=== PATIENT | male | born 1955 | race Caucasian/White ===

== ENCOUNTER 2020-10-19 18:35 | Emergency (ER) | payer MEDICARE, OTHER ==
[2020-10-19] MEDS ORDERED: Piperacillin/Tazobactam 4.5 GM in Sodium Chloride 0.9% 100 ML IV ONE (19:11)
[2020-10-19] MEDS ORDERED: Lactated Ringers 1,000 ML IV SCH ×2 (19:15)
--- NOTE | 2020-10-19 20:21 | EDM.PDOC ---
ED HPI GENERAL MEDICAL PROBLEM - General Chief Complaint: Genitourinary Problem Stated Complaint: HOLE IN BLADDER Time Seen by Provider: 10/19/20 19:18 - History of Present Illness INITIAL COMMENTS - FREE TEXT/NARRATIVE: CHIEF COMPLAINT(S): Sent in from clinic for hole in bladder HISTORY OF PRESENT ILLNESS: This is a 64-year-old man with a past medical history of tobacco use disorder who comes to the emergency department with a chief complaint of "sent in from clinic for a hole and bladder." The patient states that for the last few days he has been experiencing lower quadrant abdominal pain not associated with any nausea or vomiting. He rates his pain as 4-5 out of 10. He denies any radiation of this pain. He denies any dysuria, hematuria, melena, hematochezia. He denies any pain with bowel movements. He states that he went to the clinic where they did some work-up and a CT and he was told that he had a hole in his bladder and told to come to the emergency department. He denies any other symptoms such as fever or chills, chest pain or shortness of breath. He denies any known sick contacts. REVIEW OF SYSTEMS: Constitutional: Denies fever, chills. Eyes: Denies eye pain Ears, Nose, Mouth, & Throat: Denies earache Cardiovascular: Denies chest pain Respiratory: Denies shortness of breath Gastrointestinal: Positive for lower quadrant abdominal pain. Denies Nausea, vomiting, diarrhea, hematochezia, melena Genitourinary: Denies hematuria dysuria Skin:Denies a rash MSK: Denies joint pain Neurological: Denies blurred vision Psychiatric: Denies depression PAST MEDICAL HISTORY: As per history of present illness and as reviewed below otherwise noncontributory. SURGICAL HISTORY: As per history of present illness and as reviewed below otherwise noncontributory. SOCIAL HISTORY: As per history of present illness and as reviewed below otherwise noncontributory. FAMILY HISTORY: As per history of present illness and as reviewed below otherwise noncontributory. EXAMINATION OF ORGAN SYSTEMS/BODY AREAS: Constitutional: Blood pressure was 138/85, heart rate 104, respiratory rate 20 with an oxygen saturation of 95% on room air. Temperature 36.3 General: The overall well-appearing man in no acute distress Psychiatric: Appropriate mood and affect. Eyes: No scleral icterus or conjunctival erythema ENMT: Moist mucous membranes. No pharyngeal erythema Cardiovascular: Regular, rate, and rhythm. No gallops, murmurs, or rubs. Bilateral upper extremity pulses symmetric and intact. No peripheral edema. No JVD. Respiratory: Lungs clear to auscultation bilaterally. No wheezes, rales, or rh onchi. Gastrointestinal: Soft, tenderness to palpation in the left lower quadrant, nondistended. No rebound or guarding. Normoactive bowel sounds Genitourinary: Mild suprapubic tenderness Musculoskeletal: Normal range of motion. Skin: No lesions or abrasions. Neurological: Alert, GCS 15 MEDICAL DECISION MAKING AND COURSE IN THE ED WITH INTERPRETATION/REVIEW OF DIAGNOSTIC STUDIES: This is a 64-year-old man without a past medical history of tobacco use disorder with the last colonoscopy done approximately 20 years ago who comes to the emergency department with left lower quadrant abdominal pain which was evaluated by our clinic. I did review the patient's chart with results as below. Labs reviewed reveal a leukocytosis of 12.3 without any neutrophilic predominance or left shift. CMP is unremarkable. Urine drug screen is negative. Covid is negative. Imaging reviewed which did reveal a CT abdomen pelvis with contrast which resulted in an acute diverticulitis with mid sigmoid colon with focal fluid collection consistent with intramural abscess extending exophytically external to the colonic wall measuring 2.7 cm. Given the patient is tachycardic with evidence of acute diverticulitis and abscess I did obtain blood cultures, lactic acid and provided the patient with 1 L of lactated Ringer's bolus. 30 cc/kg will not be provided as the patient systolic blood pressure is not less than 90 and we will reevaluate after lactic acid returns. We will start the patient on Zosyn. I contacted Dr. Solis who stated that at this time he is concerned about microperforation with abscess and the patient will likely need IR drainage. He states that we do not have that capability at our institution. Laboratory: Lactic acid is 0.9. Given that the lactic acid is less than 4 there will be no additional fluid boluses. We will start the patient on IV fluid maintenance. The patient has already received his antibiotics. At this time I did have a discussion with the patient that we would likely need to transfer the patient for admission and possible surgical intervention. He was amenable to this plan. I contacted [facility] in [place] and spoke with Dr. Forte who accepted the transfer. The patient will be transferred via ambulance to their emergency department. He stated that he would contact the emergency department. DISPOSITION: Patient was transferred to [facility] in [place] in stable condition CONDITION: Serious PROCEDURES: None FINAL IMPRESSION(S)/DIAGNOSES: 1. Acute diverticulitis 2. Acute mid sigmoid intramural abscess concerning for microperforation Raymundo Castro M.D. - Related Data Allergies Allergy/AdvReac Type Severity Reaction Status Date / Time No Known Allergies Allergy Verified 10/19/20 18:54 Home Meds: Home Meds . [No Known Home Meds] 10/19/20 [History] Past Medical History - Infectious Disease History Infectious Disease History: Reports: Measles, Mumps - Past Surgical History GI Surgical History: Reports: Colonoscopy Social & Family History - Family History Family Medical History: No Pertinent Family History - Tobacco Use Tobacco Use Status *Q: Current Every Day Tobacco User Years of Tobacco use: 45 Packs/Tins Daily: 1 - Caffeine Use Caffeine Use: Reports: None - Recreational Drug Use Recreational Drug Use: No ED ROS GENERAL - Review of Systems Review Of Systems: See Below ED EXAM, GI/ABD - Physical Exam Exam: See Below Course - Vital Signs Last Recorded V/S: Last Vital Signs Temp 36.8 C 10/19/20 20:17 Pulse 90 10/19/20 20:17 Resp 16 10/19/20 20:17 BP 117/77 10/19/20 20:17 Pulse Ox 95 10/19/20 20:17 - Orders/Labs/Meds Orders: Active Orders 24 hr Category Date Time Status NPO After Midnight [Nothing per Oral After Midnight Diet 10/20/20 Breakfast Active Diet] [DIET] CULTURE BLOOD [BC] Stat Lab 10/19/20 19:29 Received CULTURE BLOOD [BC] Stat Lab 10/19/20 19:35 Received Lactated Ringers [Ringers, Lactated] 1,000 ml Med 10/19/20 19:15 Active IV ASDIRECTED Lactated Ringers [Ringers, Lactated] 1,000 ml Med 10/19/20 19:15 Active IV ASDIRECTED Blood Culture x2 Reflex Set [OM.PC] Stat Oth 10/19/20 19:12 Ordered Medication Orders Lactated Ringer's (Ringers, Lactated) 1,000 mls @ 150 mls/hr IV ASDIRECTED [facility] Lactated Ringer's (Ringers, Lactated) 1,000 mls @ 999 mls/hr IV ASDIRECTED [place] Last Admin: 10/19/20 19:41 Dose: 999 mls/hr Documented by: KAYLENE Labs: Laboratory Tests 10/19/20 Range/Units 19:29 Lactate 0.9 (0.20-2.00) mmol/L Meds: Medications Generic Name Dose Route Start Last Admin Trade Name Freq PRN Reason Stop Dose Admin Lactated Ringer's 1,000 mls @ 150 mls/hr 10/19/20 19:15 Ringers, Lactated IV ASDIRECTED [facility] Lactated Ringer's 1,000 mls @ 999 mls/hr 10/19/20 19:15 10/19/20 19:41 Ringers, Lactated IV 999 mls/hr ASDIRECTED [place] Administration Discontinued Medications Generic Name Dose Route Start Last Admin Trade Name Freq PRN Reason Stop Dose Admin Piperacillin Sod/Tazobactam 100 mls @ 100 mls/hr 10/19/20 19:11 10/19/20 19:39 Sod 4.5 gm/ Sodium Chloride IV 10/19/20 20:10 100 mls/hr ONETIME ONE Administration Departure - Departure Time of Disposition: 20:21 Disposition: DC/Tfer to Acute Hospital 02 Condition: Fair Clinical Impression: Acute diverticulitis, Intestinal abscess - Discharge Information *PRESCRIPTION DRUG MONITORING PROGRAM REVIEWED*: No *COPY OF PRESCRIPTION DRUG MONITORING REPORT IN PATIENT RAJESH: No Referrals: PCP,None [Primary Care Provider] - Sepsis Event Note (ED) - Evaluation Sepsis Screening Result: No Definite Risk - Focused Exam Vital Signs: Vital Signs Temp Pulse Resp BP Pulse Ox 10/19/20 20:17 36.8 C 90 16 117/77 95 10/19/20 18:54 36.3 C 104 H 20 138/85 95 - My Orders Last 24 Hours: My Active Orders 10/19/20 19:12 Blood Culture x2 Reflex Set [OM.PC] Stat 10/19/20 19:15 Lactated Ringers [Ringers, Lactated] 1,000 ml IV ASDIRECTED Lactated Ringers [Ringers, Lactated] 1,000 ml IV ASDIRECTED 10/19/20 19:29 CULTURE BLOOD [BC] Stat 10/19/20 19:35 CULTURE BLOOD [BC] Stat 10/20/20 Breakfast NPO After Midnight [Nothing per Oral After Midnight Diet] [DIET] - Assessment/Plan Last 24 Hours: My Active Orders 10/19/20 19:12 Blood Culture x2 Reflex Set [OM.PC] Stat 10/19/20 19:15 Lactated Ringers [Ringers, Lactated] 1,000 ml IV ASDIRECTED Lactated Ringers [Ringers, Lactated] 1,000 ml IV ASDIRECTED 10/19/20 19:29 CULTURE BLOOD [BC] Stat 10/19/20 19:35 CULTURE BLOOD [BC] Stat 10/20/20 Breakfast NPO After Midnight [Nothing per Oral After Midnight Diet] [DIET]
== END 2020-10-19 20:44 ==
LOC: MW.ED 18:35
DX: K57.80 Diverticulitis of intestine, part unspecified, with perforation and abscess without bleeding (principal); Z72.0 Tobacco use
CPT/HCPCS: 36415; 83605; 87040; 96365; 99285; J2543; J7120; 99284

== ENCOUNTER 2020-12-27 06:26 | Day surgery (SDC) | payer MEDICARE, OTHER ==
[~2020-12-27 06:26] MED LIST: Lactated Ringers 1,000 ML IV SCH
[2020-12-27] MEDS ORDERED: Propofol 200 MG/20 ML SDV ONE ×3 (06:57→08:48)
[2020-12-27] MEDS ORDERED: fentaNYL 100 MCG/2 ML SDV ONE (06:58)
[2020-12-27] MEDS ORDERED: Midazolam 1 MG/ML 2 ML SDV ONE (06:58)
--- NOTE | 2020-12-27 07:08 | PCM.PREANE ---
Preanesthetic Assessment - Anesthesia/Transfusion/Family Hx Anesthesia History: Prior Anesthesia Without Reaction Family History of Anesthesia Reaction: No Transfusion History: No Prior Transfusion(s) - Review of Systems General: No Symptoms Pulmonary: No Symptoms Cardiovascular: No Symptoms Gastrointestinal: No Symptoms Neurological: No Symptoms Other: Reports: None - Physical Assessment NPO Status Date: 12/27/20 NPO Status Time: 00:01 Vital Signs: Last Vital Signs Temp 97.2 F 12/27/20 07:04 Pulse 104 H 12/27/20 07:04 Resp 16 12/27/20 07:04 BP 116/75 12/27/20 07:04 Pulse Ox 94 L 12/27/20 07:04 Height: 5 ft 8 in Weight: 165 lb ASA Class: 2 Mental Status: Alert & Oriented x3 Airway Class: Mallampati = 2 Dentition: Reports: Normal Dentition ROM/Head Extension: Full Lungs: Clear to Auscultation, Normal Respiratory Effort Cardiovascular: Regular Rate, Regular Rhythm - Allergies Allergies/Adverse Reactions: Allergies Allergy/AdvReac Type Severity Reaction Status Date / Time No Known Allergies Allergy Verified 12/27/20 07:02 - Anesthesia Plan Pre-Op Medication Ordered: None - Acknowledgements Anesthesia Type Planned: General Anesthesia Pt an Appropriate Candidate for the Planned Anesthesia: Yes Alternatives and Risks of Anesthesia Discussed w Pt/Guardian: Yes Pt/Guardian Understands and Agrees with Anesthesia Plan: Yes Additional Comments: npo tob 1 ppd etoh 1-2 drinks a week no cv problems par no questions PreAnesthesia Questionnaire HEENT History: Reports: Hard of Hearing, Impaired Vision, Other (See Below) Other HEENT History: wears glasses, has ray hearing aids Cardiovascular History: Reports: None Respiratory History: Reports: None Gastrointestinal History: Reports: Colon Polyp Other Gastrointestinal History: hx diverticulitis Genitourinary History: Reports: Renal Calculus Musculoskeletal History: Reports: None Neurological History: Reports: None Psychiatric History: Reports: None Endocrine/Metabolic History: Reports: None Hematologic History: Reports: None Immunologic History: Reports: None Oncologic (Cancer) History: Reports: None Dermatologic History: Reports: Psoriasis - Infectious Disease History Infectious Disease History: Reports: Measles, Mumps - Past Surgical History Head Surgeries/Procedures: Reports: None HEENT Surgical History: Reports: None Cardiovascular Surgical History: Reports: None Respiratory Surgical History: Reports: None GI Surgical History: Reports: Colonoscopy Male Surgical History: Reports: None Endocrine Surgical History: Reports: None Neurological Surgical History: Reports: None Musculoskeletal Surgical History: Reports: Other (See Below) Other Musculoskeletal Surgeries/Procedures:: surgery on finger at 4 y/o Oncologic Surgical History: Reports: None Dermatological Surgical History: Reports: None - SUBSTANCE USE Tobacco Use Status *Q: Current Every Day Tobacco User Tobacco Use Within Last Twelve Months: Cigarettes Recreational Drug Use History: No - HOME MEDS Home Medications: Home Meds . [No Known Home Meds] 10/19/20 [History] - CURRENT (IN HOUSE) MEDS Current Meds: Current Medications Lactated Ringer's (Ringers, Lactated) 1,000 mls @ 125 mls/hr IV ASDIRECTED [facility] Last Admin: 12/27/20 07:01 Dose: 125 mls/hr Documented by: Discontinued Medications Fentanyl (Fentanyl 100 Mcg/2 Ml Sdv) Confirm Administered Dose 100 mcg .ROUTE .STK-MED ONE Stop: 12/27/20 06:59 Midazolam HCl (Midazolam 1 Mg/Ml 2 Ml Sdv) Confirm Administered Dose 2 mg .ROUTE .STK-MED ONE Stop: 12/27/20 06:59 Propofol (Propofol 200 Mg/20 Ml Sdv) Confirm Administered Dose 200 mg .ROUTE .STK-MED ONE Stop: 12/27/20 06:58
--- NOTE | 2020-12-27 09:24 | PCM.OPNOTE ---
- General Post-Op/Procedure Note Date of Surgery/Procedure: 12/27/20 Operative Procedure(s): Colonoscopy and polypectomies. Marking with ink Findings: Multiple polyps Right and left diverticulosis Hemorrhoids Dictation number [id number] Pre Op Diagnosis: History of colon polyps and diverticulitis Post-Op Diagnosis: Multiple polyps. Right and left diverticulosis. Hemorrhoids Primary Surgeon: Leon Schroeder Pathology: colon polyps Complications: None Condition: Good
--- NOTE | 2020-12-27 10:47 | PCM.POSTAN ---
POST ANESTHESIA ASSESSMENT - MENTAL STATUS Mental Status: Alert (no anesthetic porblems), Oriented - VITAL SIGNS Vital Signs: Last Vital Signs Temp 97.2 F 12/27/20 09:35 Pulse 66 12/27/20 09:50 Resp 14 12/27/20 09:50 BP 125/65 12/27/20 09:50 Pulse Ox 98 12/27/20 09:50 - RESPIRATORY Respiratory Status: Respiratory Rate WNL, Airway Patent, O2 Saturation Stable - CARDIOVASCULAR CV Status: Pulse Rate WNL, Blood Pressure Stable - GASTROINTESTINAL GI Status: No Symptoms - POST OP HYDRATION Hydration Status: Adequate & Stable
--- NOTE | 2020-12-27 11:00 | PCM48HPAN ---
Post Anesthesia Note - EVALUATION WITHIN 48HRS OF ANESTHETIC Vital Signs in Normal Range: Yes Patient Participated in Evaluation: Yes Respiratory Function Stable: Yes Airway Patent: Yes Cardiovascular Function Stable: Yes Hydration Status Stable: Yes Pain Control Satisfactory: Yes Nausea and Vomiting Control Satisfactory: Yes Mental Status Recovered: Yes Vital Signs: Last Vital Signs Temp 97.2 F 12/27/20 09:35 Pulse 66 12/27/20 09:50 Resp 14 12/27/20 09:50 BP 125/65 12/27/20 09:50 Pulse Ox 98 12/27/20 09:50
--- NOTE | 2020-12-27 14:30 | OR ---
SURGEON: HOMA CARROLL MD DATE OF PROCEDURE: 12/27/2020 PREOPERATIVE DIAGNOSES: 1. History of colon polyps. 2. History of diverticulitis. POSTOPERATIVE DIAGNOSES: 1. Multiple colon polyps. 2. Right and left-sided diverticulosis. 3. Hemorrhoids. PROCEDURE PERFORMED: 1. Colonoscopy. 2. Cold biopsy polypectomy. 3. Hot snare polypectomies. PRIMARY SURGEON: HOMA CARROLL MD ANESTHESIA: With Anesthesia. Extent of the colonoscopy was to the cecum. Bowel prep was very good. LIMITATIONS: None. REASON FOR PROCEDURE: The patient is a pleasant 65-year-old gentleman, who had a bout of diverticulitis with inpatient antibiotics. He was also found to have a small intramural abscess. Repeat CT scan showed resolution of abscess. The patient is feeling well. The patient did have a colonoscopy in the past he says about 15 to 20 years ago. He denies any blood in stool. He denies any family history of colon cancer. PROCEDURE IN DETAIL: Physical examination was performed. Major risks, benefits, and alternatives were explained to the patient. The patient verbalized understanding, agreement of the same. EKG, pulse oximetry, blood pressure, and capnography monitor type procedure. Continuous oxygen sedation was provided by the anesthesiologist. The patient was placed in left lateral decubitus position. Sedation was begun. After adequate sedation was achieved, a digital rectal exam was performed. No rectal masses or polyps felt. Now, a well-lubricated Olympus colonoscope was inserted into the rectum and advanced under direct visualization to the cecum. Cecum was identified by both visual and anatomic landmarks. Photographs were taken of the cecal cap. The patient did have a small polyp in the cecum. This was removed with cold biopsy polypectomy. Appeared to be completely removed. Good hemostasis. Scope was continued to be withdrawn. Just past the ileocecal valve, the patient had another small sessile polyp in the ascending colon. This was removed with a hot snare polypectomy. This was removed swipes. It appeared to be completely removed. There was good hemostasis. Mucosal edges were then reapproximated with a Resolution clip. Of note, the patient does have some diverticulosis in the ascending colon. Scope was slowly withdrawn. In the transverse colon, the patient had 2 polyps, one about 70 cm, one about 60 cm. These were both removed with hot snare polypectomy. Scope was continued to be drawn. At the splenic flexure, the patient did have a multitude of larger polyps all with more longish stalks. There were 4 polyps, all removed with a hot snare polypectomy. These were too large to get through the suction, so when the polyp was removed it was brought out with the scope and the scope was then re-introduced back to the polypectomy site. Thus, they were inspected multiple times and the polyps all appeared to be removed with good hemostasis. Scope was continued to be withdrawn, and then at about 50 cm, the patient had a fairly large polyp. Likely, this had a fairly long stalk. This was transected at the stalk. A resolution clip was placed at the base. There was good hemostasis. Polyp was removed. The scope was removed, but brought back in. Through the sides, I did balijt submucosa with a carbon-based ink at the base and around the contralateral mucosa. Scope was continued to be withdrawn. The patient did have some diverticulosis in his sigmoid colon. Scope was retroflexed in the rectum. I did have some hemorrhoids, both internal and external. Scope was then completely removed. Procedure was terminated. ENDOSCOPIC DIAGNOSES: 1. Multiple colon polyps, 1 in the cecum. 2. One in the ascending colon. 3. Two in the transverse colon. 4. Four in the splenic flexure. 5. 150 cm, scope was completely removed. 6. Right and left-sided diverticulosis. 7. Internal and external hemorrhoids, noninflamed. RECOMMENDATIONS: Followup colonoscopy will depend on pathology. Because of the size and number of polyps, would most likely need another now in 6 months. MARIOLA / MICKIE /[id number]
== END 2020-12-27 10:00 | disposition home or self-care (01) ==
LOC: MW.SDS 06:26
PROVIDERS: ATTEND Surgery
DX: D12.3 Benign neoplasm of transverse colon (principal); D12.0 Benign neoplasm of cecum; D12.2 Benign neoplasm of ascending colon; K57.30 Diverticulosis of large intestine without perforation or abscess without bleeding; K64.8 Other hemorrhoids; K64.4 Residual hemorrhoidal skin tags; F17.200 Nicotine dependence, unspecified, uncomplicated
CPT/HCPCS: 45380; 45385; J2250; J2704; J3010; J7120; 00812

== ENCOUNTER 2023-11-08 10:52 | Emergency (ER) | payer MEDICARE, OTHER ==
[2023-11-08] MEDS: Sodium Chloride 0.9% 10 ML Syringe FLUSH PRN (11:31)
[2023-11-08] MEDS: Sodium Chloride 0.9% 2.5 ML Syringe FLUSH PRN (11:32)
[2023-11-08 11:33] LABS: BASOPHILS ABSOLUTE AUTO 0.04 K/uL (0.00-0.20); BASOPHILS PERCENT AUTO 0.3 % (0.0-1.0); EOSINOPHILS ABSOLUTE AUTO 0.17 K/uL (0.00-0.45); EOSINOPHILS PERCENT AUTO 1.5 % (0.0-6.0); HEMATOCRIT 48.5 % (42.0-52.0); HEMOGLOBIN 17.1 g/dL (14.0-18.0); IMMATURE GRAN ABSOLUTE AUTO 0.04 K/uL (0.00-0.05); IMMATURE GRAN PERCENT AUTO 0.3 % (0.0-0.4); LYMPHOCYTES ABSOLUTE AUTO 1.26 K/uL (1.00-4.80); MEAN CORPUSCULAR HEMOGLOBIN 29.8 pg (28.0-32.0); MEAN CORPUSCULAR HGB CONC 35.3 g/dL (32.0-36.0); MEAN CORPUSCULAR VOLUME 84.5 fL (83.0-99.0); MEAN PLATELET VOLUME 10.3 fL (9.4-12.4); MONOCYTES ABSOLUTE AUTO 0.89 K/uL (0.00-0.80); MONOCYTES PERCENT AUTO 7.8 % (0.0-8.0); NEUTROPHILS ABSOLUTE AUTO 9.03 K/uL (1.80-7.70); NEUTROPHILS PERCENT AUTO 79.1 % (41.0-71.0); PLATELET COUNT,PLT 174 K/uL (150-400); RED BLOOD CELL COUNT 5.74 M/uL (4.52-5.90); WHITE BLOOD CELL COUNT,WBC 11.43 K/uL (3.9-11.3)
[2023-11-08 11:34] LABS: APPEARANCE,URINE CLEAR; BILIRUBIN,URINE NEGATIVE (NEGATIVE); GLUCOSE,URINE 250 mg/dL (NEGATIVE); KETONES,URINE TRACE mg/dL (NEGATIVE); LEUKOCYTE ESTERASE,URINE NEGATIVE (NEGATIVE); NITRITE,URINE NEGATIVE (NEGATIVE); OCCULT BLOOD,URINE NEGATIVE (NEGATIVE); PROTEIN,URINE NEGATIVE (NEGATIVE); UROBILINOGEN,URINE 0.2 EU/dL (<2.0)
[2023-11-08 11:36] LABS: COLOR,URINE DARK YELLOW
[2023-11-08 12:02] LABS: A/G RATIO 0.9 (0.9-1.6); ALBUMIN 3.4 g/dL (3.4-5.0); BILIRUBIN TOTAL 0.8 mg/dL (0.2-1.0); CALCIUM 9.5 mg/dL (8.5-10.1); CARBON DIOXIDE,CO2 22.8 mmol/L (21.0-32.0); CREATININE 1.3 mg/dL (0.8-1.3); EST CRCL DRUG DOSING (CG) 51.88 mL/min; PROTEIN TOTAL,TP 7.1 g/dL (6.4-8.2)
[2023-11-08] MEDS: Iopamidol 755 MG/ML 500 ML Multipack Bottle IVPUSH STA (13:22)
== END 2023-11-08 14:37 | disposition home or self-care (01) ==
LOC: MW.ED 10:52
DX: K57.32 Diverticulitis of large intestine without perforation or abscess without bleeding (principal)
CPT/HCPCS: 36415; 74177; 80053; 81003; 83690; 85025; 99284; J3490; Q9967

== ENCOUNTER 2023-12-26 10:05 | Day surgery (SDC) | payer MEDICARE, OTHER ==
[2023-12-26] MEDS: Lactated Ringers 1,000 ML IV SCH (10:57)
[2023-12-26] MEDS ORDERED: propofoL 50 ML ONE (11:07)
== END 2023-12-26 12:50 | disposition home or self-care (01) ==
LOC: MW.SDS 10:05
PROVIDERS: ATTEND Surgery
DX: Z12.11 Encounter for screening for malignant neoplasm of colon (principal); D12.2 Benign neoplasm of ascending colon; D12.6 Benign neoplasm of colon, unspecified; K62.1 Rectal polyp; K57.30 Diverticulosis of large intestine without perforation or abscess without bleeding; K64.8 Other hemorrhoids; Z86.010 Personal history of colon polyps; E78.00 Pure hypercholesterolemia, unspecified; F17.210 Nicotine dependence, cigarettes, uncomplicated
CPT/HCPCS: 45380; 45385; 88305; J2704; J7120; 00811

== ENCOUNTER 2024-10-15 09:57 | Emergency (ER) | payer MEDICARE, OTHER ==
[2024-10-15] MEDS: Sodium Chloride 0.9% 1,000 ML IV ONE (11:02)
[2024-10-15 11:08] LABS: BASOPHILS ABSOLUTE AUTO 0.05 K/uL (0.00-0.20); BASOPHILS PERCENT AUTO 0.4 % (0.0-1.0); EOSINOPHILS ABSOLUTE AUTO 0.19 K/uL (0.00-0.45); EOSINOPHILS PERCENT AUTO 1.5 % (0.0-6.0); HEMATOCRIT 49.3 % (42.0-52.0); HEMOGLOBIN 17.5 g/dL (14.0-18.0); IMMATURE GRAN ABSOLUTE AUTO 0.03 K/uL (0.00-0.05); IMMATURE GRAN PERCENT AUTO 0.2 % (0.0-0.4); LYMPHOCYTES ABSOLUTE AUTO 1.54 K/uL (1.00-4.80); LYMPHOCYTES PERCENT AUTO 12.5 % (24.0-44.0); MEAN CORPUSCULAR HGB CONC 35.5 g/dL (32.0-36.0); MEAN CORPUSCULAR VOLUME 84.4 fL (83.0-99.0); MEAN PLATELET VOLUME 10.9 fL (9.4-12.4); MONOCYTES ABSOLUTE AUTO 1.13 K/uL (0.00-0.80); MONOCYTES PERCENT AUTO 9.2 % (0.0-8.0); NEUTROPHILS ABSOLUTE AUTO 9.34 K/uL (1.80-7.70); NEUTROPHILS PERCENT AUTO 76.2 % (41.0-71.0); PLATELET COUNT,PLT 194 K/uL (150-400); RED BLOOD CELL COUNT 5.84 M/uL (4.52-5.90); WHITE BLOOD CELL COUNT,WBC 12.28 K/uL (3.9-11.3)
[2024-10-15 11:30] LABS: A/G RATIO 1.1 (0.9-1.6); ALBUMIN 3.8 g/dL (3.4-5.0); CALCIUM 9.3 mg/dL (8.5-10.1); CARBON DIOXIDE,CO2 23.8 mmol/L (21.0-32.0); CREATININE 1.2 mg/dL (0.8-1.3); EST CRCL DRUG DOSING (CG) 55.42 mL/min; MAGNESIUM 2.4 mg/dL (1.8-2.4); PROTEIN TOTAL,TP 7.4 g/dL (6.4-8.2)
[2024-10-15] MEDS: Iopamidol 755 MG/ML 500 ML Multipack Bottle IVPUSH STA (11:50)
[2024-10-15] MEDS: Amoxicillin/Clavulanate K 875-125 MG Tab PO ONE (12:30)
[2024-10-15 12:42] LABS: APPEARANCE,URINE CLOUDY; BILIRUBIN,URINE NEGATIVE (NEGATIVE); COLOR,URINE ORANGE; GLUCOSE,URINE 100 mg/dL (NEGATIVE); KETONES,URINE NEGATIVE (NEGATIVE); LEUKOCYTE ESTERASE,URINE NEGATIVE (NEGATIVE); NITRITE,URINE NEGATIVE (NEGATIVE); OCCULT BLOOD,URINE NEGATIVE (NEGATIVE); PH,URINE 5.5 (5.0-8.0); PROTEIN,URINE NEGATIVE (NEGATIVE); UROBILINOGEN,URINE 0.2 EU/dL (<2.0)
== END 2024-10-15 13:04 | disposition home or self-care (01) ==
LOC: MW.ED 09:57
DX: K57.32 Diverticulitis of large intestine without perforation or abscess without bleeding (principal); E78.00 Pure hypercholesterolemia, unspecified; F17.210 Nicotine dependence, cigarettes, uncomplicated; Z79.899 Other long term (current) drug therapy; Z75.8 Other problems related to medical facilities and other health care
CPT/HCPCS: 36415; 74177; 80053; 81003; 83690; 83735; 85025; 96360; 99284; A9270; J7030; Q9967; 99283